=== PATIENT | female | born 1930 | race Native Hawaiian/Other Pacific Islander ===

== ENCOUNTER 2019-08-21 12:34 | Outpatient (CLI) | payer OTHER ==
[2019-08-21 13:52] LABS: PLATELET COUNT 194 K/uL (152-353)
[2019-08-21 14:08] LABS: POTASSIUM 3.2 mmol/L (3.6-5.2)
== END 2019-08-21 20:10 | disposition home or self-care (01) ==
LOC: LABW 12:34
PROVIDERS: Internal Medicine
DX: N18.3 Chronic kidney disease, stage 3 (moderate) (principal)
CPT/HCPCS: 36415; 80053; 81000; 82330; 82570; 83735; 83970; 84100; 84155; 85027

== ENCOUNTER 2019-11-22 14:07 | Outpatient (CLI) | payer OTHER ==
[2019-11-22 14:36] LABS: PLATELET COUNT 187 K/uL (152-353)
[2019-11-22 14:59] LABS: POTASSIUM 3.1 mmol/L (3.6-5.2)
== END 2019-11-22 19:03 | disposition home or self-care (01) ==
LOC: LABW 14:07
PROVIDERS: Internal Medicine
DX: N18.3 Chronic kidney disease, stage 3 (moderate) (principal); E03.8 Other specified hypothyroidism; M25.50 Pain in unspecified joint; Z79.899 Other long term (current) drug therapy
CPT/HCPCS: 36415; 80053; 81000; 82330; 82570; 83036; 83735; 83970; 84100; 84155; 84439; 84443; 84550; 85027; 85651; 86140